=== PATIENT | male | born 1955 | race Hispanic/Latino ===

== ENCOUNTER 2018-04-26 03:37 | Emergency (ER) | payer MEDICARE ==
--- NOTE | 2018-04-26 04:31 | C.PDOC ---
History Of Present Illness 62 year old male is brought to the ED by EMS for psych evaluation. [place] found in a manic state. Patient states he feels fine with no pain. Patient denies SI/HI, hallucinations, medical complaints. Chief Complaint (Nursing): Psychiatric Evaluation History Per: Patient, EMS History/Exam Limitations: clinical condition Onset/Duration Of Symptoms: Hrs Current Symptoms Are (Timing): Still Present Suicide/Self Injury Attempted (Context): None Modifying Factor(s): None Associated Symptoms: Paranoia. denies: Depression, Suicidal Thoughts, Suicidal Plan Recent travel outside of the [place]: No Additional History Per: Patient, EMS Past Medical History Reviewed: Historical Data, Nursing Documentation, Vital Signs Vital Signs: Last Vital Signs Temp 98.3 F 04/26/18 04:00 Pulse 97 H 04/26/18 04:00 Resp 113 H 04/26/18 04:00 BP 154/106 H 04/26/18 04:00 Pulse Ox 98 04/26/18 06:54 - Medical History PMH: Back Problems, Schizophrenia Denies: Chronic Kidney Disease Surgical History: No Surg Hx Family History: States: Unknown Family Hx - Social History Hx Alcohol Use: Yes Hx Substance Use: No - Immunization History Hx Tetanus Toxoid Vaccination: No Hx Influenza Vaccination: No Hx Pneumococcal Vaccination: No Review Of Systems Constitutional: Negative for: Fever, Chills Cardiovascular: Negative for: Chest Pain Respiratory: Negative for: Cough, Shortness of Breath Gastrointestinal: Negative for: Nausea, Vomiting Skin: Negative for: Rash Neurological: Negative for: Weakness, Numbness Psych: Positive for: Psychosis. Negative for: Depression, Suicidal ideation Physical Exam - Physical Exam Appears: Non-toxic, No Acute Distress Skin: Normal Color, Warm, Dry Head: Atraumatic, Normacephalic Eye(s): bilateral: Normal Inspection Neck: Normal ROM, Supple Chest: Symmetrical Cardiovascular: Rhythm Regular Respiratory: Normal Breath Sounds, No Rales, No Rhonchi, No Wheezing Gastrointestinal/Abdominal: Soft, No Tenderness, No Guarding, No Rebound Extremity: Normal ROM, No Tenderness, No Swelling Neurological/Psych: Oriented x3, Normal Speech Gait: Steady ED Course And Treatment - Laboratory Results Result Diagrams: 04/26/18 05:12 04/26/18 05:12 ECG: Interpreted By Me, Viewed By Me ECG Rhythm: Sinus Rhythm ECG Interpretation: No Acute Changes, Abnormal Interpretation Of ECG: NSR, prolonged QT interval No acute changes. Rate From EC O2 Sat by Pulse Oximetry: 98 (ON RA) Pulse Ox Interpretation: Normal - Radiology CXR: Interpreted by Me, Viewed By Me CXR Interpretation: Yes: No Acute Disease. No: Infiltrates, Cardiomegaly Progress Note: 0645H Patient is medically cleared for psych. screening. Medical Decision Making Medical Decision Making: Plan: * Labs * UA * Crisis eval Disposition - Disposition Disposition Time: 07:00 Condition: STABLE Forms: [employer] (Kyrgyz) - Clinical Impression Clinical Impression: Psychiatric disorder - Scribe Statement The provider has reviewed the documentation as recorded by the Scribe Romero Herbert All medical record entries made by the Scribe were at my direction and personally dictated by me. I have reviewed the chart and agree that the record accurately reflects my personal performance of the history, physical exam, medical decision making, and the department course for this patient. I have also personally directed, reviewed, and agree with the discharge instructions and disposition.
[2018-04-26 05:15] LABS: BASO % 0.3 % (0.0-2.0); EOS % 0.1 % (0.0-4.0); HEMOGLOBIN 12.6 g/dL (12.0-18.0); LYMPH # 0.9 K/uL (1.0-4.3); LYMPH % 12.2 % (20.0-40.0); MEAN CELL VOLUME 92.7 fL (80.0-94.0); MEAN CORPUSCULAR HEMOGLOBIN 31.3 pg (27.0-31.0); MEAN CORPUSCULAR HGB CONC 33.7 g/dL (33.0-37.0); MEAN PLATELET VOLUME 6.9 fL (7.2-11.7); MONO # 0.3 K/uL (0.0-0.8); MONO % 4.7 % (0.0-10.0); NEUT % 82.7 % (50.0-75.0); RBC 4.04 Mil/uL (4.40-5.90); WHITE BLOOD COUNT 7.3 K/uL (4.8-10.8)
[2018-04-26 05:28] LABS: ALB/GLOB RATIO 1.2 (1.0-2.1); ALBUMIN 4.4 g/dL (3.5-5.0); ALT/SGPT 31 U/L (21-72); AST/SGOT 43 U/L (17-59); BLOOD UREA NITROGEN 33 mg/dL (9-20); CALCIUM 10.3 mg/dl (8.6-10.4); GFR NON-AFRICAN AMERICAN > 60
[2018-04-26 06:25] LABS: BARBITURATES, UR NEGATIVE (NEGATIVE); PHENCYCLIDINE, UR NEGATIVE (NEGATIVE)
[2018-04-26 06:32] LABS: URINE BACTERIA RARE (<OCC); URINE BILIRUBIN NEGATIVE (NEGATIVE); URINE BLOOD NEGATIVE (NEGATIVE); URINE CLARITY Clear (Clear); URINE COLOR Amber (YELLOW); URINE GLUCOSE (UA) NORMAL (Normal); URINE LEUKOCYTE ESTERASE NEG Leu/uL (Negative); URINE PROTEIN NEGATIVE (NEGATIVE)
[2018-04-26 06:45] LABS: BENZODIAZEPINES, UR POSITIVE (NEGATIVE); OPIATES, UR POSITIVE (NEGATIVE)
[2018-04-26] MEDS ORDERED: Potassium Chloride 20 mEq ER Tab PO STA (09:18)
[2018-04-26] MEDS ORDERED: Potassium Chloride 20 mEq ER Tab PO ONE (09:23)
--- NOTE | 2018-04-26 16:14 | PCM.PSYCH ---
Initial Psychiatric Evaluation - Initial Psychiatric Evaluation Type of Admission: Voluntary Legal Status: Capacity Chief Complaint (in patient's own words): "I want to go to [place]" History of Present Illness and Precipitating Events: He is a 62 y/o M currently living with his and unemployed. He is brought to the ER earlier today by ambulance because he walking on the [place] [employer] wanting to go to [place]. As per the collateral patient appeared very disorganized and internally preoccupied and that's why he was taken to the [facility] for further evaluation. Patient appeared very disheveled and unkempt. He appeared to have loose associations. He remained disorganized and internally preoccupied throughout the evaluation. Patient reports the he has a hx of PTSD diagnosed by psychiatrist. He reports that he has been awake for the past 4 days and states he has "runs outside and swims laps" while not sleeping. pt unable to carry a conversation and displays disorganized speech when asked about his symptoms and responds with "my truck has rats". pt began to cry when asked about his daughter who has but started talking normally soon after, indicating liable mood. When asked about why he was on the [employer], pt began to talk about his glass eye and his dad being a prisoner of war and ended the conversation by talking about his psychiatric admission at [facility]. He remained paranoid, delusional and bizarre. He continued to have flight of ideas, pressured speech, irritability and agitation. However he denies abusing any drinking or any substance abuse. PMH: None reported Past Psychiatric History - Past Psychiatric History Previous Treatment History: Inpatient Pertinent Medical Hx (Current Medical&Sleep Prob, Allergies): Allergies Allergy/AdvReac Type Severity Reaction Status Date / Time No Known Allergies Allergy Unverified 04/26/18 04:29 Acetaminophen/Oxycodone Hydr [Percocet 10/325 mg Tab] 1 tab PO Q6H 04/26/18 Benztropine [Benztropine Mesylate] 0.5 mg PO DAILY 04/26/18 Escitalopram [Lexapro] 10 mg PO DAILY 04/26/18 Haloperidol [Haldol] 1 mg PO DAILY 04/26/18 Quinapril [Accupril] 40 mg PO DAILY 04/26/18 Zolpidem [Ambien] 10 mg PO HS 04/26/18 oxyCODONE [oxyCONTIN Extended Release Tab] 40 mg PO DAILY 04/26/18 Review of Systems - Review of Systems All systems: reviewed and no additional remarkable complaints except - Psychiatric Psychiatric: Behavioral Changes, Confusion, Mood Swings, Paranoia. absent: Hallucinations, Homicidal Ideation, Panic Attacks, Suicidal Ideation, Visual Hallucinations Mental Status Examination - Personal Presentation Personal Presentation: Looks stated age - Affect Affect: Broad - Motor Activity Motor Activity: Calm - Reliability in Providing Information Reliability in Providing Information: Poor, due to alteration in thoughts, Poor , due to altered mood - Speech Speech: Disorganized, Irrelevant, Tangential - Mood Mood: Anxious - Formal Thought Process Formal Thought Process: Hallucinations, Delusions, Paranoia, Loosening of associations, Flight of ideas - Hallucinations/Delusions Delusions: Persecution - Obsessions/Compulsions Obsessions: No Compulsions: No - Cognitive Functions Orientation: Person, Place Sensorium: Alert Attention/Concentration: Attentive Abstract Thinking: [place] Estimate of Intelligence: Below average Judgement: Imparied, as evidence by: Poor judgement, Imparied, as evidence by: Lack of insight into illness - Risk Risk: Diminished functioning - Limitations Limitations: Living alone DSM 5 DX - DSM 5 DSM 5 Diagnosis: Schizoaffective disorder bipolar type - Recommended/Plan of Treatment Treatment Recommendations and Plan of Treatment: Schizoaffective disorder bipolar type CBT Psychoeducation Supportive therapy Haldol 5 mg twice a day Haldol 5 mg every 6 hours when necessary Cogentin 1 mg by mouth every 6 hours Benadryl 50 mg by mouth every 6 hours when necessary Trazodone 50 mg by mouth daily at bedtime Patient to be screened by [facility], for involuntary commitment - Smoking Cessation Smoking Cessation Initiated: No
[2018-04-27] MEDS ORDERED: Magnesium Sulfate 1 gm in D5W 1 GM/100 ML BAG IVPB ONE ×2 (10:54→11:05)
[2018-04-27] MEDS ORDERED: Potassium Chloride 20 mEq ER Tab PO SCH (11:08)
[2018-04-27] MEDS ORDERED: Potassium Chloride 20 mEq ER Tab PO ONE (11:25)
[2018-04-27 17:05] VITALS: BP 154/85; PULSE 81; RESP 17; TEMP 98.3; O2SAT 97
--- NOTE | 2018-04-27 20:24 | CARD ---
APPROVED REPORT Date of service: 04/26/2018 EKG Measurement Heart [id number] <Conclusion> Normal sinus rhythm Prolonged QT Abnormal ECG
--- NOTE | 2018-04-27 20:25 | CARD ---
APPROVED REPORT Date of service: 04/26/2018 EKG Measurement Heart [id number] <Conclusion> Normal sinus rhythm Prolonged QT Abnormal ECG
[2018-04-28] MEDS ORDERED: Potassium Chloride 20 mEq ER Tab PO SCH (10:00)
== END 2018-04-27 17:20 | disposition short-term general hospital (02) ==
LOC: C.ER 03:37
DX: F25.0 Schizoaffective disorder, bipolar type (principal); E87.6 Hypokalemia
CPT/HCPCS: 71046; 80053; 80320; 80324; 80345; 80346; 80349; 80353; 80358; 80361; 81001; 83992; 85025; 87086; 93005; 96365; 99285; J3475